=== PATIENT | female | born 1960 | race Caucasian/White ===

== ENCOUNTER 2017-07-10 14:59 | Emergency (ER) | payer OTHER ==
[~2017-07-10] VITALS: Ht 160 cm; Wt 69.0 kg
[2017-07-10 15:12] VITALS: Ht 160 cm; Wt 69.0 kg
[2017-07-10 16:15] VITALS: BP 150/72
== END 2017-07-10 16:15 | disposition home or self-care (01) ==
LOC: ED 14:59
DX: N61.1 Abscess of the breast and nipple (principal); E11.9 Type 2 diabetes mellitus without complications
CPT/HCPCS: J2001

== ENCOUNTER 2017-07-12 14:38 | Emergency (ER) | payer OTHER ==
[~2017-07-12] VITALS: Ht 160 cm; Wt 69.4 kg
[2017-07-12 14:40] VITALS: Ht 160 cm; Wt 69.4 kg
[2017-07-12 16:09] VITALS: BP 139/81
== END 2017-07-12 16:09 | disposition home or self-care (01) ==
LOC: ED 14:38
DX: Z48.01 Encounter for change or removal of surgical wound dressing (principal); E11.9 Type 2 diabetes mellitus without complications
CPT/HCPCS: 90715

== ENCOUNTER 2017-07-14 13:49 | Emergency (ER) | payer OTHER ==
[~2017-07-14] VITALS: Ht 162.6 cm; Wt 68.5 kg
[2017-07-14 14:02] VITALS: Ht 162.6 cm; Wt 68.5 kg
== END 2017-07-14 14:37 | disposition home or self-care (01) ==
LOC: ED 13:49
DX: Z48.817 Encounter for surgical aftercare following surgery on the skin and subcutaneous tissue (principal); N61.1 Abscess of the breast and nipple; E11.9 Type 2 diabetes mellitus without complications

== ENCOUNTER 2017-08-01 15:06 | Emergency (ER) | payer OTHER ==
[~2017-08-01] VITALS: Ht 157.5 cm; Wt 69.4 kg
[2017-08-01 15:32] VITALS: BP 140/64; Ht 157.5 cm; Wt 69.4 kg
== END 2017-08-01 15:53 | disposition home or self-care (01) ==
LOC: ED 15:06
DX: Z48.01 Encounter for change or removal of surgical wound dressing (principal); E11.9 Type 2 diabetes mellitus without complications